=== PATIENT | male | born 1950 | race Two or more races ===

== ENCOUNTER 2019-04-28 07:37 | Day surgery (SDC) | payer MEDICARE, MEDICAID ==
--- NOTE | 2019-04-21 15:49 | Pre-Procedure Note/Attestation ---
Pre-Procedure Note/Attestation Complete Prior to Procedure Planned Procedure: right Procedure Narrative: Cataract Extraction with intraocular lens implant right eye Indications for Procedure Pre-Operative Diagnosis: Cortical Cataract Attestation I attest that I discussed the nature of the procedure; its benefits; risks and complications; and alternatives (and the risks and benefits of such alternatives ), prior to the procedure, with the patient (or the patient's legal personnel representative). I attest that, if there was a reasonable possibility of needing a blood transfusion, the patient (or the patient's legal personnel representative) was given the [facility] standardized written summary, pursuant to the Piyush Ama Blood Safety Act ([place] Health and Safety Code # 1645, as amended). I attest that I re-evaluated the patient just prior to the surgery and that there has been no change in the patient's H&P, except as documented below: Jm Hagan MD Apr 21, 2019 15:49
--- NOTE | 2019-04-22 11:34 | Opthalmology H&P ---
Ophthalmology H&P H&P Chief Complaint: decreased vision in right eye HPI Vision Affects Ability to: read, manage personal affairs HPI Narrative Blurry vision Exam Visual Acuity: OD 20/200 OS 20/125 Tension: OD 10 OS 10 Eye Exam: normal OU: external exam, palpebral fissure-width, marginal reflex distance, levator function, corneas, anterior chambers; findings: lens - CC/NS Cataracts OU, fundus exam - NPDR OU Assessment/Plan Treatment Plan: cataract extraction w/ lens implant Goals of Treatment: improvement of vision, enhance quality of life Attestation Attestation The risks and benefits of the surgery as well as alternative procedures were explained to the patient in detail. Jm Hagan MD Apr 22, 2019 11:34
[2019-04-28] VITALS (7 sets, daily range): BP systolic 140–163; BP diastolic 79–90
[~2019-04-28] VITALS: Ht 170.2 cm; Wt 74.8 kg
[~2019-04-28 07:37] MED LIST: Akten 3.5% 1ml Btl RIGHT EYE ONE; Diclofenac Sod 0.1% Op Soln RIGHT EYE SCH; Proparacaine 0.5% Opth Soln 15ml RIGHT EYE ONE; Tetracaine 0.5% Opth 4ml Soln RIGHT EYE ONE
[2019-04-28] MEDS ORDERED: BENAZEPRIL HCL10 MG ORAL (10:44)
[2019-04-28] MEDS ORDERED: FLUCONAZOLE100 MG ORAL (10:44)
[2019-04-28] MEDS ORDERED: GLIMEPIRIDE4 MG ORAL (10:44)
[2019-04-28] MEDS ORDERED: ASPIR 8181 MG ORAL (10:44)
[2019-04-28] MEDS ORDERED: VITAMIN D250000 UNI1 ORAL (10:44)
[2019-04-28] MEDS ORDERED: ATORVASTATIN CA40 MG ORAL (10:44)
[2019-04-28] MEDS ORDERED: JENTADUETO 2.51 EACH PO (10:44)
[2019-04-28] MEDS ORDERED: HYDROCHLOROTHIA25 MG ORAL (10:44)
[2019-04-28] MEDS: Cyclopentolate 1% Opth Sol 2ml RIGHT EYE SCH ×3 (11:17→11:31)
[2019-04-28] MEDS: Phenylephrine 10% Opth Soln 5ml RIGHT EYE SCH ×3 (11:17→11:31)
[2019-04-28] MEDS: Tropicamide 1% Opth 15ml Soln RIGHT EYE SCH ×3 (11:18→11:31)
[2019-04-28] MEDS: Tobramycin Op Soln 0.3% 5ml RIGHT EYE SCH ×3 (11:18→11:31)
[2019-04-28] MEDS ORDERED: NS Irrig 1000ml ONE (13:30)
[2019-04-28] MEDS ORDERED: LR 1000ml ONE (13:30)
[2019-04-28] MEDS ORDERED: Pred Forte 1% Opth Susp 1ml ONE (13:30)
[2019-04-28] MEDS ORDERED: Pilocarpine 1% Opth 15ml Soln ONE (13:30)
[2019-04-28] MEDS ORDERED: Dexamethasone 4mg/ml vial ONE (13:30)
[2019-04-28] MEDS ORDERED: Sterile Water Irrig 1000ml IRRIG ONE (13:30)
[2019-04-28] MEDS ORDERED: EPINEPHrine 1mg/1ml Amp ONE (13:40)
[2019-04-28] MEDS ORDERED: BSS 500ml btl ONE (13:40)
[2019-04-28] MEDS ORDERED: BSS 15ml BTL ONE (13:41)
[2019-04-28] MEDS ORDERED: Sodium Hyaluronate 14 mg/ml 0.85ml ONE (13:41)
[2019-04-28] MEDS ORDERED: Povidone-Iodine 5% opth solution ONE (13:41)
[2019-04-28] MEDS ORDERED: fentaNYL 100 mcg/2 mL IV ONE (13:50)
[2019-04-28] MEDS ORDERED: Midazolam 2mg/2ml Inj ONE (13:50)
--- NOTE | 2019-04-28 14:41 | Anethesia Preoperative Eval ---
Anesthesia Pre-op PMH/ROS General Date of Evaluation: Apr 28, 2019 Time of Evaluation: 13:40 Anesthesiologist: ron ASA Score: ASA 3 Mallampati Score Class I : Soft palate, uvula, fauces, pillars visible Class II: Soft palate, uvula, fauces visible Class III: Soft palate, base of uvula visible Class IV: Only hard plate visible Mallampati Classification: Class III Surgeon: ana cristina Diagnosis: cataract Surgical Procedure: cataract extraction Anesthesia History: none Family History: no anesthesia problems Allergies: Coded Allergies: No Known Allergies (Unverified , 04/21/19) Medications: see eMAR Patient NPO?: Yes NPO Date: Apr 28, 2019 NPO Time: 00:01 Past Medical History Cardiovascular: Reports: HTN, CAD Pulmonary: Denies: asthma, COPD, NISHANT, other Gastrointestinal/Genitourinary: Denies: GERD, CRI, ESRD, other Neurologic/Psychiatric: Denies: dementia, CVA, depression/anxiety, TIA, other Endocrine: Reports: DM HEENT: Reports: cataract (R); Denies: cataract (L), glaucoma, [place] (L), K[place] (R), other Hematology/Immune: Denies: anemia, DVT, bleeding disorder, other Musculoskeletal/Integumentary: Denies: OA, RA, DJD, DDD, edema, other Other: obesity PSxH Narrative: unknown Anesthesia Pre-op Phys. Exam Physician Exam Last Vital Signs Date Time Temp Pulse Resp B/P (MAP) Pulse Ox O2 Delivery O2 Flow Rate FiO2 04/28/19 14:35 54 20 145/83 95 Room Air 04/28/19 14:28 97.3 Constitutional: NAD Neurologic: CN 2-12 intact Cardiovascular: RRR Respiratory: CTA Airway Exam Mallampati Classification 3 Mallampati Score: Class III MO: full ROM: full Dentures: no upper, no lower Anesthesia Pre-op A/P Studies Pre-op Studies: EKG - Sr Risk Assessment & Plan Plan: mac Status Change Before Surgery: No Pre-Antibiotics Drug: none Huong Oakley CRNA Apr 28, 2019 14:40
--- NOTE | 2019-04-28 14:42 | Immediate Post-Op Evaluation ---
Immediate Post-Op Evalulation Immediate Post-Op Evalulation Procedure: right eye cataract extraction Date of Evaluation: Apr 28, 2019 Time of Evaluation: 14:32 IV Fluids: 300 Blood Pressure Systolic: 130 Blood Pressure Diastolic: 80 Pulse Rate: 53 Respiratory Rate: 14 O2 Sat by Pulse Oximetry: 99 Temperature (Fahrenheit): 97.0 Nausea: No Vomiting: No Complications none Patient Status: awake, reacts, patent Hydration Status: adequate Drug: none Huong Oakley CRNA Apr 28, 2019 14:42
--- NOTE | 2019-04-28 15:39 | 48 Hour Post Anesthesia Eval ---
Post Anesthesia Evaluation Procedure: right eye cataract extraction Date of Evaluation: Apr 28, 2019 Time of Evaluation: 15:39 Blood Pressure Systolic: 140 0: 79 Pulse Rate: 75 Respiratory Rate: 14 O2 Sat by Pulse Oximetry: 98 Airway: patent Nausea: No Vomiting: No Hydration Status: adequate Cardiopulmonary Status: stable Mental Status/LOC: patient returned to baseline Post-Anesthesia Complications: none Follow-up care needed: N/A Huong Oakley CRNA Apr 28, 2019 15:39
--- NOTE | 2019-04-30 15:05 | Brief Operative Note ---
Immediate Post Operative Note Operative Note Chief Complaint: Blurry vision Pre-op Diagnosis: Cortical Cataract right eye Procedure: Cataract extraction with IOL right eye Post-op Diagnosis: Pseudo OD Findings: consistent w/pre-op dx studies Surgeon: Jm Hagan MD Anesthesiologist: Huong Oakley CRNA Anesthesia: MAC Specimen: none Complications: none Condition: stable Fluids: LR Estimated Blood Loss: none Drains: none Implant(s) used?: Yes - IOL Jm Hagan MD Apr 30, 2019 15:05
--- NOTE | 2019-04-30 15:11 | Operative Note - PDOC ---
Operative Note Operative Note Date of Operation/Procedure: Apr 28, 2019 Chief Complaint: Blurry vision Pre-op Diagnosis: Cortical Cataract right eye Procedure: Cataract extraction with IOL right eye Post-op Diagnosis: Pseudo OD Operative Findings: consistent w/pre-op dx studies Surgeon: Jm Hagan MD Anesthesiologist: Huong Oakley CRNA Anesthesia: MAC Specimen: none Complications: none Condition: stable Fluids: LR Estimated Blood Loss: none Drains: none Implant(s) used?: Yes - IOL Indications for Procedure Cortical Cataract right eye Description of Procedure This patient has been complaining visually significant cataract in the right eye with the best corrected visual acuity of 20/200 under moderate glare conditions worse. The patient complains of difficulties with glare in performing activities of daily living and wants to manage personal affairs with comfort and accuracy and see well enough to move with safety at home and outdoors. The risks, benefits and alternatives of the procedure were discussed with the patient in the office prior to scheduling surgery. All questions from the patient were answered after the surgical procedure was explained in detail. The risks of the procedure as explained to the patient include, but are not limited to, pain, infection, bleeding, loss of vision, retinal detachment, need for further surgery, loss of lens nucleus, double vision, etc. Alternative procedures were discussed which include, to do nothing or seek a second opinion. Informed consent for this procedure was obtained from the patient. The patient was referred to a primary care physician for a cardiopulmonary clearance prior to surgery, after proper evaluation was done patient was properly scheduled for outpatient surgery. The patient was brought to the operating room where the anesthesiologist established I.V. lines and cardiac monitoring leads. Mild intravenous sedation was administered. The patient was then prepared with a 5% solution of povidone -iodine to the conjunctival fornix and lashes, and a 5% solution of povidone- iodine to the lids and periorbital skin. The patient was then draped in the usual sterile fashion. A lid speculum was then placed in the operative eye. A keratome blade was then used to create a biplanar incision into the anterior chamber. Viscoelastics was then instilled into the anterior chamber. A capsulorrhexis was then fashioned with an utrata forceps A G 27 cannula was used to hydrodissect and hydro delineate the lens nucleus. Paracentesis incision was made at 3 o'clock with sharp blade. The phacoemulsification unit, after being properly adjusted and tested, was then used to emulsify the nucleus. Residual cortical material was aspirated with the irrigation and aspiration unit. Healon was then instilled into the anterior chamber. The corneal wound was then enlarged to the size of the optic with the angelica keratome blade. The intraocular lens was then inspected for right power and size and thought to be satisfactory. Then the lens was gently placed in the capsular bag. Positioning within the capsular bag was confirmed by direct visualization. Optic centration was accomplished with a Sinskey hook. Viscoelastics was removed from the anterior chamber using the irrigation and aspiration unit. The corneal wound was then tested for leaks and none were found. The lid speculum were then removed. Sponge and needle counts were correct. An eye patch and shield were placed over the operative eye. The patient was taken to the recovery room in stable condition. There were no complications. The patient tolerated the procedure well. The patient was then transferred to the ambulatory surgery unit in stable and satisfactory condition , was given detailed written instructions and asked to follow up in the office the next day. Jm Hagan MD Apr 30, 2019 15:10
== END 2019-04-28 15:30 | disposition home or self-care (01) ==
LOC: SUR 07:37
DX: H25.011 Cortical age-related cataract, right eye (principal); I11.9 Hypertensive heart disease without heart failure; E11.9 Type 2 diabetes mellitus without complications; E66.9 Obesity, unspecified; Z68.25 Body mass index [BMI] 25.0-25.9, adult
CPT/HCPCS: 66984; 82962; J0171; J1100; J2250; J3010; J3370; V2632; 94003; 94150